=== PATIENT | male | born 1985 | race Caucasian/White ===

== ENCOUNTER 2016-07-16 17:19 | Inpatient (IN) | payer MEDICAID ==
[~2016-07-16] VITALS: Ht 177.8 cm; Wt 68.5 kg
[~2016-07-16 17:19] MED LIST: FLUO-191 PO; OLAN5Z PO; OMEP20 PO
[2016-07-16 19:28] VITALS: BP 108/64
[2016-07-16] MEDS ORDERED: ZOLPIDEM TARTRATE 10 MG TABLET PO PRN (19:45)
[2016-07-16] MEDS ORDERED: PNEUMOCOCCAL VACCINE POLYVALENT 0.5 ML VIAL [PPSV23] IM ONE (19:45)
[2016-07-16] MEDS ORDERED: LORazepam 2 MG TABLET PO PRN (19:45)
[2016-07-16] MEDS ORDERED: INFLUENZA VIRUS VACCINE QVS 2016-17 (3YR+)/PF 60 MCG/0.5 ML SYRINGE IM ONE (19:45)
[2016-07-16] MEDS ORDERED: TraZODone HCL 50 MG TABLET PO SCH (21:00)
[2016-07-17 07:05] VITALS: BP 104/62
[2016-07-17] MEDS: NICOTINE 21 MG/24 HOUR PATCH TD SCH (09:00)
[2016-07-17] MEDS ORDERED: FLUoxetine HCL 20 MG CAPSULE PO SCH (09:00)
[2016-07-17 09:10] LABS: BASOPHILS % (AUTO) 0.3 % (0.0-2.0); EOSINOPHILS % (AUTO) 1.8 % (1.0-6.0); HEMATOCRIT 40.6 % (41-53); HEMOGLOBIN 13.3 g/dL (13.5-17.5); LYMPHOCYTES # (AUTO) 1.3 K/uL (1.0-4.8); LYMPHOCYTES % (AUTO) 19.3 % (22.0-44.0); MEAN CORPUSCULAR HEMOGLOBIN 29.2 pg (26.0-34.0); MEAN CORPUSCULAR HGB CONC 32.7 G/dL (31.0-37.0); MEAN CORPUSCULAR VOLUME 89 fL (80-100); MONOCYTES # (AUTO) 0.5 K/uL (0.1-1.0); MONOCYTES % (AUTO) 6.6 % (2.0-9.0); PLATELET COUNT (AUTO) 254 K/uL (150-450); RED BLOOD CELL COUNT(AUTO) 4.54 MIL/uL (4.50-5.90); WHITE BLOOD COUNT (AUTO) 6.9 K/uL (4.5-11.0)
[2016-07-17] MEDS: OMEPRAZOLE 20 MG CAPSULE PO SCH (09:26)
[2016-07-17 10:49] LABS: APPEARANCE,URINE TURBID (CLEAR); GLUCOSE, URINE (UA) NEGATIVE (NEGATIVE); KETONES,URINE NEGATIVE (NEGATIVE); LEUKOCYTE ESTERASE ,URINE NEGATIVE (NEGATIVE); OCCULT BLOOD,URINE NEGATIVE (NEGATIVE); PH,URINE 5.5 (5.0-8.0); PROTEIN,URINE NEGATIVE (NEGATIVE)
[2016-07-17 10:53] LABS: ALANINE AMINOTRANSFERASE 29 U/L (12-78); ALBUMIN 3.3 g/dL (3.4-5.0); ANION GAP 7 mmol/L (8-16); ASPARTATE AMINOTRANSFERASE 23 U/L (15-37); BILIRUBIN,TOTAL 0.3 mg/dL (0.1-1.0); CALCIUM, TOTAL 8.6 mg/dL (8.8-10.5); CARBON DIOXIDE 29 mmol/L (22-29); CHLORIDE 101 mmol/L (98-107); CREATININE 0.88 mg/dL (0.60-1.30); GLOMERULAR FILTR. RATE CALC > 60 mL/min (>60); POTASSIUM 4.5 mmol/L (3.5-5.1); SODIUM SERUM 137 mmol/L (136-145); TOTAL PROTEIN, SERUM 6.5 g/dL (6.4-8.2); UREA NITROGEN, BLOOD 16 mg/dL (7-18)
[2016-07-17 11:06] LABS: ADD UA MICROSCOPIC YES
[2016-07-17 11:07] LABS: RBC,URINE None Seen /HPF (0-2); WBC,URINE None Seen /HPF (0-5)
[2016-07-17 11:08] LABS: URIC ACID CRYSTALS,URINE Many /LPF (None Seen)
[2016-07-17 16:10] VITALS: BP 114/68
[2016-07-17] MEDS ORDERED: IBUPROFEN 400 MG TABLET PO PRN (17:45)
[2016-07-17] MEDS ORDERED: ACETAMINOPHEN 325 MG TABLET PO PRN (17:45)
[2016-07-17] MEDS ORDERED: TraZODone HCL 50 MG TABLET PO SCH (21:00)
[2016-07-18 06:47] VITALS: BP 112/78
[2016-07-18] MEDS: NICOTINE 21 MG/24 HOUR PATCH TD SCH (09:00)
[2016-07-18] MEDS: FLUoxetine HCL 20 MG CAPSULE PO SCH (09:25)
[2016-07-18] MEDS: OMEPRAZOLE 20 MG CAPSULE PO SCH (09:25)
[2016-07-18 13:14] VITALS: BP 116/83
[2016-07-18 16:14] VITALS: BP 128/81
[2016-07-19 08:24] VITALS: BP 98/59
[2016-07-19] MEDS: OMEPRAZOLE 20 MG CAPSULE PO SCH (10:23)
[2016-07-19] MEDS: NICOTINE 21 MG/24 HOUR PATCH TD SCH (10:23)
[2016-07-19] MEDS: FLUoxetine HCL 20 MG CAPSULE PO SCH (10:23)
[2016-07-19] MEDS ORDERED: FLUO-191 PO (11:18)
== END 2016-07-19 13:15 | disposition home or self-care (01) | DRG 751 ==
LOC: B2S 20:07 → EDSTATUS 20:16
PROVIDERS: ADMIT Psychiatry & Neurology Psychiatry; ATTEND Psychiatry & Neurology Psychiatry
DX: F33.2 Major depressive disorder, recurrent severe without psychotic features (principal); F15.20 Other stimulant dependence, uncomplicated; R45.851 Suicidal ideations; J44.9 Chronic obstructive pulmonary disease, unspecified; K21.9 Gastro-esophageal reflux disease without esophagitis; F17.200 Nicotine dependence, unspecified, uncomplicated; F20.9 Schizophrenia, unspecified; Z71.6 Tobacco abuse counseling; Z71.51 Drug abuse counseling and surveillance of drug abuser; Z79.899 Other long term (current) drug therapy; Z81.8 Family history of other mental and behavioral disorders; Z28.21 Immunization not carried out because of patient refusal; Z91.5 Personal history of self-harm
CPT/HCPCS: 90471

== ENCOUNTER 2019-12-20 14:52 | Inpatient (IN) | payer MEDICAID ==
[~2019-12-20] VITALS: Ht 175.3 cm; Wt 58.1 kg
[~2019-12-20 14:52] MED LIST changes: -OLAN5Z PO
[2019-12-20] MEDS ORDERED: TRAZ-252 PO (16:06)
[2019-12-20] MEDS ORDERED: PNEUMOCOCCAL VACCINE POLYVALENT 0.5 ML VIAL [PPSV23] IM ONE (17:15)
[2019-12-20] MEDS ORDERED: GuaiFENesin/D-METHORPHAN [SUGAR-FREE] 200-20MG/10 ML SYRUP UDCUP PO PRN (18:15)
[2019-12-20] MEDS ORDERED: MAG HYDROX/AL HYDROX/SIMETH ES 30 ML SUSPENSION UDCUP PO PRN (18:15)
[2019-12-20] MEDS ORDERED: TUBERCULIN, PURIFIED PROTEIN DERIVATIVE 5 TU/0.1 ML SYRINGE ID ONE (18:15)
[2019-12-20] MEDS ORDERED: PROMETHAZINE HCL 25 MG TABLET PO PRN (18:15)
[2019-12-20] MEDS ORDERED: LORazepam 2 MG TABLET PO PRN (18:15)
[2019-12-20] MEDS ORDERED: OLANZapine 5 MG RAPDIS TABLET PO PRN (18:15)
[2019-12-20] MEDS ORDERED: HydrOXYzine PAMOATE 50 MG CAPSULE PO PRN (18:15)
[2019-12-20] MEDS ORDERED: LOPERAMIDE HCL 2 MG CAPSULE PO PRN (18:15)
[2019-12-20] MEDS ORDERED: MAGNESIUM HYDROXIDE SUSPENSION 30 ML UDCUP PO PRN (18:15)
[2019-12-20] MEDS ORDERED: ACETAMINOPHEN 325 MG TABLET PO PRN (18:15)
[2019-12-20] MEDS ORDERED: ZOLPIDEM TARTRATE 10 MG TABLET PO PRN (18:15)
[2019-12-20 18:20] VITALS: BP 110/78
[2019-12-20] MEDS: OLANZapine 5 MG RAPDIS TABLET PO SCH ×2 (21:00→22:15)
[2019-12-21 08:39] VITALS: BP 109/72
[2019-12-21] MEDS: FLUoxetine HCL 20 MG CAPSULE PO SCH (09:00)
[2019-12-21] MEDS: OMEPRAZOLE 20 MG CAPSULE PO SCH (09:00)
[2019-12-21] MEDS: THIAMINE 100 MG TABLET PO SCH ×2 (09:00→17:00)
[2019-12-21] MEDS: MULTIVITAMINS WITH MINERALS, THERAPEUTIC TABLET PO SCH (09:00)
[2019-12-21] MEDS: FOLIC ACID 1 MG TABLET PO SCH (09:00)
[2019-12-21] MEDS: NALTREXONE HCL 50 MG TABLET PO SCH (09:00)
[2019-12-21 17:02] VITALS: BP 118/67
[2019-12-21] MEDS: OLANZapine 5 MG RAPDIS TABLET PO SCH (20:27)
[2019-12-22 03:53] VITALS: BP 115/65
[2019-12-22 08:30] LABS: BASOPHILS % (AUTO) 0.5 % (0.0-2.0); EOSINOPHILS % (AUTO) 2.7 % (1.0-6.0); HEMATOCRIT 45.6 % (41-53); HEMOGLOBIN 15.2 g/dL (13.5-17.5); LYMPHOCYTES # (AUTO) 1.5 K/uL (1.0-4.8); MEAN CORPUSCULAR HEMOGLOBIN 29.8 pg (26.0-34.0); MEAN CORPUSCULAR HGB CONC 33.4 G/dL (31.0-37.0); MEAN CORPUSCULAR VOLUME 89 fL (80-100); MONOCYTES # (AUTO) 0.4 K/uL (0.1-1.0); MONOCYTES % (AUTO) 7.3 % (2.0-9.0); NEUTROPHILS # (AUTO) 3.6 K/uL (1.8-7.7); NEUTROPHILS % (AUTO) 62.5 % (40.0-70.0); PLATELET COUNT (AUTO) 220 K/uL (150-450); RED BLOOD CELL COUNT(AUTO) 5.12 MIL/uL (4.50-5.90); RED CELL DISTRIBUTION WIDTH 13.1 % (11.5-14.5)
[2019-12-22] MEDS: FLUoxetine HCL 20 MG CAPSULE PO SCH (08:49)
[2019-12-22] MEDS: NALTREXONE HCL 50 MG TABLET PO SCH (08:49)
[2019-12-22] MEDS: FOLIC ACID 1 MG TABLET PO SCH (08:49)
[2019-12-22] MEDS: THIAMINE 100 MG TABLET PO SCH ×2 (08:49→16:30)
[2019-12-22] MEDS: MULTIVITAMINS WITH MINERALS, THERAPEUTIC TABLET PO SCH (08:49)
[2019-12-22] MEDS: OMEPRAZOLE 20 MG CAPSULE PO SCH (08:49)
[2019-12-22 08:56] LABS: ALANINE AMINOTRANSFERASE 22 U/L (12-78); ALBUMIN 3.5 g/dL (3.4-5.0); ALKALINE PHOSPHATASE 48 U/L (46-116); ANION GAP 6 mmol/L (8-16); ASPARTATE AMINOTRANSFERASE 16 U/L (15-37); BILIRUBIN,TOTAL 0.2 mg/dL (0.1-1.0); CALCIUM, TOTAL 8.7 mg/dL (8.8-10.5); CARBON DIOXIDE 27 mmol/L (22-29); CHLORIDE 105 mmol/L (98-107); CHOL/HDL RATIO 3.8 (4.2-7.3); CHOLESTEROL 151 mg/dL (131-200); CREATININE 0.78 mg/dL (0.60-1.30); FREE T4 (FREE THYROXINE) 0.87 ng/dL (0.76-1.46); GLOMERULAR FILTR. RATE CALC > 60 mL/min (>60); GLUCOSE,RANDOM 81 mg/dL (70-110); HDL CHOLESTEROL 40 mg/dL (40-60); LDL CHOL (CALC.) 96 mg/dL (0-130); SODIUM SERUM 138 mmol/L (136-145); THYROID STIMULATING HORMONE 0.49 uIU/mL (0.36-3.74); TRIGLYCERIDES 75 mg/dL (15-150); UREA NITROGEN, BLOOD 17 mg/dL (7-18)
[2019-12-22 09:19] VITALS: BP 108/67
[2019-12-22 17:17] VITALS: BP 96/66
[2019-12-22] MEDS: OLANZapine 5 MG RAPDIS TABLET PO SCH (20:23)
[2019-12-23] MEDS: NALTREXONE HCL 50 MG TABLET PO SCH (08:38)
[2019-12-23] MEDS: THIAMINE 100 MG TABLET PO SCH ×2 (08:38→16:42)
[2019-12-23] MEDS: OMEPRAZOLE 20 MG CAPSULE PO SCH (08:38)
[2019-12-23] MEDS: FOLIC ACID 1 MG TABLET PO SCH (08:38)
[2019-12-23] MEDS: FLUoxetine HCL 20 MG CAPSULE PO SCH (08:38)
[2019-12-23] MEDS: MULTIVITAMINS WITH MINERALS, THERAPEUTIC TABLET PO SCH (08:38)
[2019-12-23 09:18] VITALS: BP 110/64
[2019-12-23 16:11] VITALS: BP 112/89
[2019-12-23] MEDS: OLANZapine 5 MG RAPDIS TABLET PO SCH (20:05)
[2019-12-24 00:32] VITALS: BP 118/70
[2019-12-24 08:57] VITALS: BP 121/73
[2019-12-24] MEDS: NALTREXONE HCL 50 MG TABLET PO SCH (09:12)
[2019-12-24] MEDS: FLUoxetine HCL 20 MG CAPSULE PO SCH (09:12)
[2019-12-24] MEDS: THIAMINE 100 MG TABLET PO SCH ×2 (09:12→17:00)
[2019-12-24] MEDS: FOLIC ACID 1 MG TABLET PO SCH (09:12)
[2019-12-24] MEDS: MULTIVITAMINS WITH MINERALS, THERAPEUTIC TABLET PO SCH (09:12)
[2019-12-24] MEDS: OMEPRAZOLE 20 MG CAPSULE PO SCH (09:12)
[2019-12-24] MEDS ORDERED: NALT50TA PO (14:38)
[2019-12-24] MEDS ORDERED: FLUO-191 PO (14:38)
[2019-12-24] MEDS ORDERED: OLAN5TAB30 PO (14:38)
[2019-12-24 16:02] VITALS: BP 108/70
== END 2019-12-24 16:30 | disposition home or self-care (01) | DRG 885 ==
LOC: B2S 17:23
PROVIDERS: ADMIT Psychiatry & Neurology Psychiatry; ATTEND Psychiatry & Neurology Psychiatry
DX: F25.9 Schizoaffective disorder, unspecified (principal); D64.9 Anemia, unspecified; F12.90 Cannabis use, unspecified, uncomplicated; F17.210 Nicotine dependence, cigarettes, uncomplicated; K21.9 Gastro-esophageal reflux disease without esophagitis; Z59.0 Homelessness; Z91.14 Patient's other noncompliance with medication regimen; Z91.5 Personal history of self-harm
CPT/HCPCS: 83036; 84439; 84443; 86592

== ENCOUNTER 2020-12-11 07:54 | Inpatient (IN) | payer MEDICAID ==
[~2020-12-11] VITALS: Ht 175.3 cm; Wt 59.7 kg
[~2020-12-11 07:54] MED LIST changes: +NALT50TA PO; +OLAN5TAB30 PO
[2020-12-11] MEDS ORDERED: ZOLPIDEM TARTRATE 10 MG TABLET PO PRN (08:45)
[2020-12-11] MEDS ORDERED: HALOPERIDOL 5 MG TABLET PO PRN (08:45)
[2020-12-11] MEDS: LORazepam 2 MG TABLET PO PRN ×2 (09:55→20:34)
[2020-12-11 09:58] VITALS: BP 108/77
[2020-12-11] MEDS ORDERED: PNEUMOCOCCAL VACCINE POLYVALENT 0.5 ML VIAL [PPSV23] IM. ONE (10:45)
[2020-12-11 16:34] VITALS: BP 122/68
[2020-12-12 00:55] VITALS: BP 105/68
[2020-12-12 01:27] VITALS: BP 105/68
[2020-12-12] MEDS ORDERED: ONDANSETRON HCL 4 MG TABLET PO PRN (06:30)
[2020-12-12] MEDS ORDERED: LOPERAMIDE HCL 2 MG CAPSULE PO PRN (06:30)
[2020-12-12] MEDS ORDERED: DOCUSATE SODIUM 100 MG CAPSULE PO PRN (06:30)
[2020-12-12] MEDS ORDERED: CloNIDine HCL 0.1 MG TABLET PO PRN (06:30)
[2020-12-12] MEDS ORDERED: ALBUTEROL SULFATE HFA 90 MCG/PUFF 8 GM INHALER IH PRN (06:30)
[2020-12-12] MEDS ORDERED: BENZOCAINE/MENTHOL LOZENGE PO PRN (06:30)
[2020-12-12] MEDS ORDERED: OMEPRAZOLE 20 MG CAPSULE PO PRN (06:30)
[2020-12-12] MEDS ORDERED: MAG HYDROX/AL HYDROX/SIMETH ES 30 ML SUSPENSION UDCUP PO PRN (06:30)
[2020-12-12] MEDS ORDERED: ACETAMINOPHEN 325 MG TABLET PO PRN (06:30)
[2020-12-12] MEDS ORDERED: BACITRACIN 28 GM OINTMENT TP PRN (06:30)
[2020-12-12] MEDS ORDERED: IBUPROFEN 600 MG TABLET PO PRN (06:30)
[2020-12-12] MEDS ORDERED: MAGNESIUM HYDROXIDE SUSPENSION 30 ML UDCUP PO PRN (06:30)
[2020-12-12] MEDS ORDERED: PETROLATUM,WHITE 28 GM JELLY TP PRN (06:30)
[2020-12-12 07:46] LABS: BASOPHILS % (AUTO) 0.8 % (0.0-2.0); EOSINOPHILS % (AUTO) 2.7 % (1.0-6.0); HEMATOCRIT 41.4 % (41-53); HEMOGLOBIN 13.6 g/dL (13.5-17.5); LYMPHOCYTES # (AUTO) 1.7 K/uL (1.0-4.8); LYMPHOCYTES % (AUTO) 31.2 % (22.0-44.0); MEAN CORPUSCULAR HEMOGLOBIN 29.3 pg (26.0-34.0); MEAN CORPUSCULAR HGB CONC 32.9 G/dL (31.0-37.0); MEAN CORPUSCULAR VOLUME 89 fL (80-100); MONOCYTES # (AUTO) 0.3 K/uL (0.1-1.0); MONOCYTES % (AUTO) 5.5 % (2.0-9.0); NEUTROPHILS # (AUTO) 3.3 K/uL (1.8-7.7); NEUTROPHILS % (AUTO) 59.8 % (40.0-70.0); PLATELET COUNT (AUTO) 217 K/uL (150-450); RED BLOOD CELL COUNT(AUTO) 4.65 MIL/uL (4.50-5.90); RED CELL DISTRIBUTION WIDTH 12.9 % (11.5-14.5)
[2020-12-12 08:15] VITALS: BP 100/81
[2020-12-12 08:19] LABS: ALANINE AMINOTRANSFERASE 49 U/L (12-78); ALBUMIN 3.2 g/dL (3.4-5.0); ALKALINE PHOSPHATASE 39 U/L (46-116); ANION GAP 9 mmol/L (8-16); ASPARTATE AMINOTRANSFERASE 27 U/L (15-37); BILIRUBIN,TOTAL 0.3 mg/dL (0.1-1.0); CALCIUM, TOTAL 8.2 mg/dL (8.8-10.5); CARBON DIOXIDE 26 mmol/L (22-29); CHLORIDE 105 mmol/L (98-107); CHOL/HDL RATIO 2.7 (4.2-7.3); CHOLESTEROL 140 mg/dL (131-200); CREATININE 0.68 mg/dL (0.60-1.30); FREE T4 (FREE THYROXINE) 0.95 ng/dL (0.76-1.46); GLOMERULAR FILTR. RATE CALC > 60 mL/min (>60); GLUCOSE,RANDOM 87 mg/dL (70-110); HDL CHOLESTEROL 52 mg/dL (40-60); LDL CHOL (CALC.) 80 mg/dL (0-130); SODIUM SERUM 140 mmol/L (136-145); THYROID STIMULATING HORMONE 0.69 uIU/mL (0.36-3.74); TOTAL PROTEIN, SERUM 6.1 g/dL (6.4-8.2); TRIGLYCERIDES 40 mg/dL (15-150); UREA NITROGEN, BLOOD 14 mg/dL (7-18)
[2020-12-12 09:00] VITALS: BP 100/61
[2020-12-12] MEDS: NICOTINE 21 MG/24 HOUR PATCH TD SCH (09:00)
[2020-12-12 16:37] VITALS: BP 108/68
[2020-12-13 01:22] VITALS: BP 109/65
[2020-12-13 08:30] VITALS: BP 118/68
[2020-12-13] MEDS: NICOTINE 21 MG/24 HOUR PATCH TD SCH (08:57)
[2020-12-13] MEDS: LORazepam 2 MG TABLET PO PRN (09:10)
[2020-12-13 16:24] VITALS: BP 105/67
[2020-12-13] MEDS ORDERED: OLANZapine 5 MG RAPDIS TABLET PO SCH (21:00)
[2020-12-14 00:43] VITALS: BP 108/68
[2020-12-14 08:31] VITALS: BP 117/73
[2020-12-14] MEDS: NICOTINE 21 MG/24 HOUR PATCH TD SCH (09:00)
[2020-12-14 16:38] VITALS: BP 122/76
== END 2020-12-14 17:45 | disposition home or self-care (01) | DRG 750 ==
LOC: B2S 09:17
PROVIDERS: ADMIT Psychiatry & Neurology Psychiatry; ATTEND Psychiatry & Neurology Psychiatry
DX: F25.9 Schizoaffective disorder, unspecified (principal); R45.851 Suicidal ideations; Z59.0 Homelessness; F17.200 Nicotine dependence, unspecified, uncomplicated; J44.9 Chronic obstructive pulmonary disease, unspecified; F10.10 Alcohol abuse, uncomplicated; K21.9 Gastro-esophageal reflux disease without esophagitis; K59.09 Other constipation; Z88.0 Allergy status to penicillin; Z88.8 Allergy status to other drugs, medicaments and biological substances
CPT/HCPCS: 80053; 80061; 83036; 84436; 84439; 84443; 85025; 90732; G0480